=== PATIENT | female | born 1995 | race Caucasian/White ===

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

== ENCOUNTER 2017-04-04 21:02 | Emergency (ER) | payer OTHER ==
[~2017-04-04] VITALS: Ht 154.9 cm; Wt 53.5 kg
[~2017-04-04 21:02] MED LIST: CLOB1SUS PO; [UNRECOGNIZED DRUG - CODE] PO
[2017-04-04 21:08] VITALS: Ht 154.9 cm; Wt 53.5 kg
[2017-04-04] MEDS ORDERED: OXYCODONE HCL IR 5 MG TAB (IMMEDIATE RELEASE) PO STA (21:51)
[2017-04-04] MEDS ORDERED: IBUPROFEN 600 MG TAB PO STA (21:51)
--- NOTE | 2017-04-04 21:54 | DIAGNOSTIC IMAGING REPORT ---
RIGHT FOREARM 2 VIEWS ROUTINE CLINICAL HISTORY: Right forearm pain status post trauma COMPARISON: None. DISCUSSION: No fractures or dislocations are visualized. IMPRESSION: No fractures identified. Electronically signed by: Edwar Jones M.D. 04/04/2017 9:53 PM Dictated Date/Time: 04/04/2017 9:53 PM
[2017-04-04] MEDS ORDERED: OXYCODONE IR HOME PACK PO ONE (22:00)
[2017-04-04] MEDS ORDERED: OXYC1TAB3 PO (22:14)
[2017-04-04 22:24] VITALS: BP 132/81; PULSE 90; TEMP 36.7; O2SAT 100
--- NOTE | 2017-04-05 00:20 | EMERGENCY ROOM VISIT NOTE ---
History First contact with patient: 21:14 Chief Complaint: ARM PAIN Stated Complaint: R ARM INJRY History of Present Illness The patient is a 21 year old female who presents to the Emergency Room with complaints of pain, numbness and tingling of her right forearm into the right fourth and fifth fingers. The patient reports that she slipped and fell one steps, landing on her elbow. She denies head injury, neck pain, back pain or other injuries from her fall. She rates her discomfort an 8 out of 10. The patient is [id number]. Review of Systems 10 system review was performed and was negative except for pertinent positives and negatives as indicated in history of present illness Past Medical/Surgical History Medical Problems: (1) Epilepsy (2) Brant-Gastaut syndrome Surgical Problems: (1) No history of previous surgery Family History Unremarkable Social History Smoking Status: Never Smoker Alcohol Use: occasionally Drug Use: none Marital Status: single Housing Status: lives with roommate Occupation Status: [employer] student Current/Historical Medications Scheduled Clobazam (Onfi), 10 MG PO DAILY Felbamate (Felbatol), 2,800 MG PO QAM Felbamate (Felbatol), 1,600 MG PO QPM Scheduled PRN Oxycodone Ir (Roxicodone Ir), 1 TAB PO Q4H PRN for Pain Physical Exam Vital Signs Date Time Temp Pulse Resp B/P (MAP) Pulse Ox O2 Delivery O2 Flow Rate FiO2 04/04/17 22:24 36.7 90 18 132/81 100 04/04/17 22:19 90 18 132/81 100 Room Air 04/04/17 21:08 36.7 118 16 126/85 95 Room Air Physical Exam CONSTITUTIONAL: Healthy and well nourished. Alert and oriented X 3 with positive affect. HEENT: Normocephalic, atraumatic. Pupils equal, round and reactive. NECK: Full active range of motion without discomfort. MUSCULOSKELETAL: Examination of the right upper sternum he does not show any significant soft tissue edema, ecchymosis, abrasions or lacerations. She is tender to palpation through the medial aspect of the elbow with a positive compression test and positive Tinel test at the cubital tunnel. She has equal collector of internal revenue strength bilaterally. No focal tenderness to palpation through the shoulder or wrist region. Distal pulses are intact. INTEGUMENTARY: No rash or other significant dermatologic conditions noted. NEUROLOGIC: Right hand median, radial and ulnar motor and sensory are intact. Medical Decision & Procedures ER Provider Diagnostic Interpretation: My interpretation of right forearm x-rays does not show any obvious fractures or dislocations. Radiologist report is as follows: RIGHT FOREARM 2 VIEWS ROUTINE CLINICAL HISTORY: Right forearm pain status post trauma COMPARISON: None. DISCUSSION: No fractures or dislocations are visualized. IMPRESSION: No fractures identified. Medications Administered Medications (Trade) Dose Ordered Sig/Freedom Route Start Time Stop Time Status Last Admin Dose Admin Ibuprofen (Motrin Tab) 600 mg NOW STAT PO 04/04/17 21:51 04/04/17 21:57 DC 04/04/17 22:05 600 MG Oxycodone HCl (Roxicodone Immediate Rel Tab) 5 mg NOW STAT PO 04/04/17 21:51 04/04/17 21:57 DC 04/04/17 22:05 5 MG Oxycodone HCl (Roxicodone Immediate Rel 5MG Home Pack) 1 homepack UD ONCE PO 04/04/17 22:00 04/04/17 22:01 DC 04/04/17 22:20 1 HOMEPACK ED Course Patient history and physical exam were performed. Nurse's notes were reviewed. Vital signs were reviewed and were normal. The patient was administered ibuprofen for pain. X-rays of the right forearm were normal. Clinical exam is consistent with atraumatic ulnar neuritis. The patient was encouraged to intermittently apply ice to the elbow. I offered to get some Heelbo pads from the medical floor, however the patient requested an Ronn wrap instead. She was encouraged to intermittently apply ice to the elbow. I also encouraged the patient to avoid any further continuous pressure or trauma to the elbow. She was encouraged to try to sleep with her arm extended. She was provided contact information for orthopedics should her symptoms not significantly improve within the next 3-5 days. She was encouraged to alternate ibuprofen and Tylenol as needed for pain. Did request something stronger for pain, and was administered OxyIR 5 mg. She was also dispensed a home pack and prescription for OxyIR 5 mg as needed for worse pain. The patient was happy with plan of care, voiced understanding of all discharge instructions, and rated her discomfort a 5 out of 10 at the conclusion of my exam. Medical Decision [place] Drug Monitoring Program Search Results: patient reviewed within database, no issues identified Medication Reconcilliation Current Medication List: was personally reviewed by me Blood Pressure Screening Patient's blood pressure: Normal blood pressure Impression Primary Impression: Traumatic right ulnar neuritis Departure Information Prescriptions Oxycodone Ir (Roxicodone Ir) 5 Mg Tab 1 TAB PO Q4H Y for Pain, #15 TAB For Initial Treatment Prov: Myke Pérez PA 04/04/17 Referrals [facility] (PCP) Patient Instructions My [facility]
== END 2017-04-04 22:25 | disposition home or self-care (01) ==
LOC: C.EDB 21:03 → C.EDD 22:25
DX: G56.21 Lesion of ulnar nerve, right upper limb (principal); W10.9XXA Fall (on) (from) unspecified stairs and steps, initial encounter; Y92.9 Unspecified place or not applicable; G40.909 Epilepsy, unspecified, not intractable, without status epilepticus; G40.812 Lennox-Gastaut syndrome, not intractable, without status epilepticus; Z79.899 Other long term (current) drug therapy

== ENCOUNTER 2017-04-19 09:25 | Emergency (ER) | payer OTHER ==
[~2017-04-19 09:25] MED LIST changes: +OXYC1TAB3 PO
[2017-04-19 09:30] VITALS: TEMP 37
[2017-04-19] MEDS ORDERED: ACETAMINOPHEN 325 MG TAB PO STA (10:36)
[2017-04-19] MEDS ORDERED: HYDROCODONE/ACETAMOPHEN 5/325MG TAB PO STA (10:36)
[2017-04-19] MEDS ORDERED: SODIUM CHLORIDE 0.9% 1000ML 1,000 ML IV STA ×2 (10:39→11:43)
[2017-04-19 10:51] LABS: BASO % 0.1 %; BASO ABS # 0.01 K/uL (0-0.2); COMPLETE YES; EOS % 1.1 %; HEMATOCRIT 39.6 % (37-47); IG% 0.3 %; LYMPH % 13.4 %; LYMPH ABS # 1.17 K/uL (1.2-3.4); MEAN CELL VOLUME 92.3 fL (80-100); MEAN CORPUSCULAR HEMOGLOBIN 31.2 pg (25-34); MEAN CORPUSCULAR HGB CONC 33.8 g/dl (32-36); MEAN PLATELET VOLUME 9.9 fL (7.4-10.4); MONO % 7.5 %; NEUT % 77.6 %; PLATELET COUNT 280 K/uL (130-400); RED BLOOD COUNT 4.29 M/uL (4.2-5.4); WHITE BLOOD COUNT 8.71 K/uL (4.8-10.8)
[2017-04-19 10:57] LABS: BLOOD UREA NITROGEN 17 mg/dl (7-18); BUN/CREATININE RATIO 27.7 (10-20); CARBON DIOXIDE 27 mmol/L (21-32); CHLORIDE 106 mmol/L (98-107); CREATININE 0.62 mg/dl (0.60-1.20); GLUCOSE 83 mg/dl (70-99); MAGNESIUM 1.9 mg/dl (1.8-2.4); PHOSPHORUS 2.7 mg/dl (2.5-4.9); POTASSIUM 4.2 mmol/L (3.5-5.1); SODIUM 138 mmol/L (136-145)
[2017-04-19 11:00] LABS: PREG INTERNAL NEGATIVE QC NEG CLEAR BACKGROUND; PREG INTERNAL POSITIVE QC POS CONTROL LINE
--- NOTE | 2017-04-19 11:21 | DIAGNOSTIC IMAGING REPORT ---
HEAD CT NONCONTRAST CT DOSE: HISTORY: s/p fall, unknown how many stairs, facial trauma noted TECHNIQUE: Multiaxial CT images of the head were performed without the use of intravenous contrast. Automated exposure control was utilized for this study. A dose lowering technique was utilized adhering to the principles of ALARA. Comparison: None. Findings: Partial opacification of the visualized frontal sinuses, ethmoid air cells, and maxillary sinuses. This is better appreciated on the same day facial CT. The mastoid air cells are clear. Slightly depressed fracture involving the lateral wall the left orbit. Left frontal scalp swelling. The calvarium is intact. There is no mass, hematoma, midline shift, acute infarct. The ventricles and sulci are within normal limits. Impression: No acute intracranial abnormality. Left facial fractures and opacified sinuses are better appreciated on the same day facial CT. Electronically signed by: Trevor Atkinson M.D. 04/19/2017 11:20 AM Dictated Date/Time: 04/19/2017 11:14 AM
--- NOTE | 2017-04-19 11:24 | EMERGENCY ROOM VISIT NOTE ---
History Report prepared by Brisa: Octavia Ferreira Under the Supervision of: Dr. Cody Simms M.D. First contact with patient: 10:15 Chief Complaint: FALL Stated Complaint: FALL History of Present Illness The patient is a 21 year old female with a past medical history of epilepsy who presents to the ED with a cc of fall beginning [employer]. Patient was found at the bottom of the stairs. The fall was not witnessed. She does not remember falling. Positive facial pain, left shoulder pain, right elbow pain, right knee pain. Negative chest pain. She is not on blood thinners. She denies any alcohol , tobacco, or drug use. She does drink coffee, but no other stimulant use. She is under some increased stress from school. Her last seizure was 2 weeks ago. Source of History: patient Onset: [employer]IST Position: other Quality: other (fall) Timing: other (episodic) Associated Symptoms: No chest pain Note: Pt reports facial pain, left shoulder pain, right elbow pain, right knee pain. Review of Systems See HPI for pertinent positives and negatives. A total of ten systems were reviewed and were otherwise negative. Past Medical & Surgical Medical Problems: (1) Epilepsy (2) Quemado-Gastaut syndrome Surgical Problems: (1) No history of previous surgery Family History No pertinent family history stated. Social History Smoking Status: Never Smoker Alcohol Use: occasionally Drug Use: none Marital Status: single Housing Status: lives with roommate Occupation Status: [employer] student Current/Historical Medications Scheduled Amoxicillin & Pot Clavulanate (Augmentin 875-125 mg), 875 MG PO BID Clobazam (Onfi), 10 MG PO DAILY Felbamate (Felbatol), 2,800 MG PO QAM Felbamate (Felbatol), 1,600 MG PO QPM Ondasetron Odt (Zofran Odt), 4 MG SL Q6H Scheduled PRN Oxycodone Ir (Roxicodone Ir), 1-2 TAB PO Q4H PRN for Pain Allergies Coded Allergies: No Known Allergies (Unverified , 04/04/17) Physical Exam Vital Signs Date Time Temp Pulse Resp B/P (MAP) Pulse Ox O2 Delivery O2 Flow Rate FiO2 04/19/17 11:45 97 18 140/76 100 Room Air 04/19/17 09:30 37.0 112 18 129/88 99 Room Air Physical Exam GENERAL: Awake, alert, well-appearing, NAD HENT: Ecchymosis and swelling to the left cheek with mild tenderness, small abrasion which is hemostatic to the left cheek. No proptosis, no hyphema, PERRL , EOMI intact, visual acuity grossly intact. EYES: Normal conjunctiva. Sclera non-icteric. NECK: Supple. No nuchal rigidity. FROM. No midline C spine TTP. Paraspinal TTP. RESPIRATORY: CTAB, no rhonchi, wheezing, crackles CARDIAC: RRR, no MRG ABDOMEN: Soft, NTND, BS+ MSK: No chest wall TTP, no LE edema. Mild left shoulder pain, mild right elbow pain, mild right knee pain. NEURO: GCS 15, CN 2-12 intact, good UE and LE strength, no sensory deficit. SKIN: No rash or jaundice noted. Medical Decision & Procedures ER Provider Diagnostic Interpretation: Radiology results as stated below per my review and radiologist interpretation: CHEST ONE VIEW PORTABLE HISTORY: s/p fall COMPARISON: None. FINDINGS: The lungs are clear. Cardiac silhouette is normal in size. No pleural effusions. No pneumothorax. Poststernotomy changes. IMPRESSION: No acute process. Electronically signed by: Trevor Atkinson M.D. 04/19/2017 12:09 PM Dictated Date/Time: 04/19/2017 12:[address]AST CT DOSE: HISTORY: s/p fall, unknown how many stairs, facial trauma noted TECHNIQUE: Multiaxial CT images of the head were performed without the use of intravenous contrast. Automated exposure control was utilized for this study. A dose lowering technique was utilized adhering to the principles of ALARA. Comparison: None. Findings: Partial opacification of the visualized frontal sinuses, ethmoid air cells, and maxillary sinuses. This is better appreciated on the same day facial CT. The mastoid air cells are clear. Slightly depressed fracture involving the lateral wall the left orbit. Left frontal scalp swelling. The calvarium is intact. There is no mass, hematoma, midline shift, acute infarct. The ventricles and sulci are within normal limits. Impression: No acute intracranial abnormality. Left facial fractures and opacified sinuses are better appreciated on the same day facial CT. Electronically signed by: Trevor Atkinson M.D. 04/19/2017 11:20 AM Dictated Date/Time: 04/19/2017 11:14 AM RIGHT KNEE 3 VIEWS CLINICAL HISTORY: Right knee pain and swelling. Trauma. COMPARISON: None. DISCUSSION: No fractures or dislocations are visualized. There is no radiographic evidence of a significant joint effusion. IMPRESSION: No fractures or dislocations identified. Electronically signed by: Edwar Jones M.D. 04/19/2017 11:33 AM Dictated Date/Time: 04/19/2017 11:[address] FACIAL BONES-MXILLOFAC WITHOUT CT DOSE: 960.37 mGy.cm CLINICAL HISTORY: Facial pain status post trauma. Fall down stairs. COMPARISON STUDY: No previous studies for comparison. TECHNIQUE: Helical images were acquired in the transverse plane. The study was reviewed and analyzed on the independent 3-D workstation. A dose lowering technique was utilized adhering to the principles of ALARA. The pterygoid plates appear intact. There are acute fractures involving the anterior and lateral madrigal of the left maxillary sinus. The globes appear intact. There is no evidence of orbital emphysema. There are acute fractures involving the lateral wall of the left orbit. There is an equivocal nondisplaced left zygomatic arch fracture. The mandibular condyles appear intact. Both maxillary sinuses are nearly completely opacified. There is opacification of multiple ethmoid air cells. There is partial opacification of frontal sinuses. There is minimal sphenoid sinus mucosal thickening. IMPRESSION: 1. Acute fractures involving the lateral wall of the left orbit, demonstrating 2 mm of maximal depression. 2. Acute fractures involving the anterior and lateral madrigal of the left maxillary sinus 3. Equivocal nondisplaced left zygomatic arch fracture Electronically signed by: Edwar Jones M.D. 04/19/2017 11:31 AM Dictated Date/Time: 04/19/2017 11:26 AM LEFT SHOULDER MIN 2 VIEWS ROUTINE CLINICAL HISTORY: 21 years-old Female presenting with pain post ?seizure. TECHNIQUE: Internal rotation, external rotation, and Grashey views of the left shoulder were obtained. COMPARISON: None. FINDINGS: Glenohumeral and acromioclavicular joints congruent. No subluxation of the humeral head. No degenerative change. No acute fracture or malalignment. Visualized portion of the left hemithorax demonstrates median sternotomy wires. IMPRESSION: No acute osseous injury of the left shoulder. No dislocation. Electronically signed by: Ki Singletary M.D. 04/19/2017 11:49 AM Dictated Date/Time: 04/19/2017 11:48 AM Laboratory Results 04/19/17 10:05 Red Blood Count 4.29, Mean Corpuscular Volume 92.3, Mean Corpuscular Hemoglobin 31.2, Mean Corpuscular Hemoglobin Concent 33.8, Mean Platelet Volume 9.9, Neutrophils (%) (Auto) 77.6, Lymphocytes (%) (Auto) 13.4, Monocytes (%) (Auto) 7.5, Eosinophils (%) (Auto) 1.1, Basophils (%) (Auto) 0.1, Neutrophils # (Auto) 6.75, Lymphocytes # (Auto) 1.17, Monocytes # (Auto) 0.65, Eosinophils # (Auto) 0.10, Basophils # (Auto) 0.01 04/19/17 10:05 Test 04/19/17 10:05 04/19/17 11:25 04/19/17 11:45 White Blood Count 8.71 K/uL (4.8-10.8) Red Blood Count 4.29 M/uL (4.2-5.4) Hemoglobin 13.4 g/dL (12.0-16.0) Hematocrit 39.6 % (37-47) Mean Corpuscular Volume 92.3 fL (80-100) Mean Corpuscular Hemoglobin 31.2 pg (25-34) Mean Corpuscular Hemoglobin Concent 33.8 g/dl (32-36) Platelet Count 280 K/uL (130-400) Mean Platelet Volume 9.9 fL (7.4-10.4) Neutrophils (%) (Auto) 77.6 % Lymphocytes (%) (Auto) 13.4 % Monocytes (%) (Auto) 7.5 % Eosinophils (%) (Auto) 1.1 % Basophils (%) (Auto) 0.1 % Neutrophils # (Auto) 6.75 K/uL (1.4-6.5) Lymphocytes # (Auto) 1.17 K/uL (1.2-3.4) Monocytes # (Auto) 0.65 K/uL (0.11-0.59) Eosinophils # (Auto) 0.10 K/uL (0-0.5) Basophils # (Auto) 0.01 K/uL (0-0.2) RDW Standard Deviation 49.4 fL (36.4-46.3) RDW Coefficient of Variation 14.6 % (11.5-14.5) Immature Granulocyte % (Auto) 0.3 % Immature Granulocyte # (Auto) 0.03 K/uL (0.00-0.02) Anion Gap 5.0 mmol/L (3-11) Estimated GFR () > 150.0 Estimated GFR (Non- 130.7 BUN/Creatinine Ratio 27.7 (10-20) Calcium Level 9.0 mg/dl (8.5-10.1) Phosphorus Level 2.7 mg/dl (2.5-4.9) Magnesium Level 1.9 mg/dl (1.8-2.4) Human Chorionic Gonadotropin, Qual NEG (NEG) Prothrombin Time 10.1 SECONDS (9.0-12.0) Prothromb Time International Ratio 0.9 (0.9-1.1) Activated Partial Thromboplast Time 26.9 SECONDS (21.0-31.0) Partial Thromboplastin Ratio 1.0 Urine Color YELLOW Urine Appearance CLEAR (CLEAR) Urine pH 5.5 (4.5-7.5) Urine Specific [place] 1.010 (1.000-1.030) Urine Protein NEG (NEG) Urine Glucose (UA) NEG (NEG) Urine Ketones NEG (NEG) Urine Occult Blood TRACE (NEG) Urine Nitrite NEG (NEG) Urine Bilirubin NEG (NEG) Urine Urobilinogen NEG (NEG) Urine Leukocyte Esterase NEG (NEG) Urine WBC (Auto) 1-5 /hpf (0-5) Urine RBC (Auto) 0-4 /hpf (0-4) Urine Hyaline Casts (Auto) 1-5 /lpf (0-5) Urine Epithelial Cells (Auto) >30 /lpf (0-5) Urine Bacteria (Auto) 1+ (NEG) Laboratory results reviewed by me Medications Administered Medications (Trade) Dose Ordered Sig/Freedom Route Start Time Stop Time Status Last Admin Dose Admin Acetaminophen (Tylenol Tab) 650 mg NOW STAT PO 04/19/17 10:36 04/19/17 10:40 DC 04/19/17 10:53 650 MG Acetaminophen/ Hydrocodone Bitart ([place] 5/325 Tab) 1 tab ONE STAT PO 04/19/17 10:36 9/13/17 10:40 DC 04/19/17 10:53 1 TAB Sodium Chloride 1,000 ml @ 999 mls/hr Q1H1M STAT IV 04/19/17 10:39 04/19/17 11:39 DC 04/19/17 10:49 999 MLS/HR Sodium Chloride 1,000 ml @ 999 mls/hr Q1H1M STAT IV 04/19/17 11:43 04/19/17 12:43 DC 04/19/17 11:46 999 MLS/HR Morphine Sulfate (MoRPHine SULFATE INJ) 4 mg NOW STAT IV 04/19/17 11:43 04/19/17 11:45 DC 04/19/17 11:51 4 MG Amoxicillin/ Clavulanate Potassium (Augmentin Tab) 875 mg NOW ONCE PO 04/19/17 11:45 04/19/17 11:46 DC 04/19/17 11:50 875 MG ED Course 1026: The patient was evaluated in room B12A. A complete history and physical exam was performed. 1208: I discussed the patient's case with Dr. Mitchell, [facility]. He recommends follow up in 1 week. 1226: I discussed the patient's case with Dr. Rodriguez, [facility] neurology. She recommends contacting the patient's primary neurologist. 1320: A reasonable effort was made to contact the primary neurologist. The patient's primary neurologist was paged 2 separate times, but did not respond. 1330: I reevaluated the patient. I discussed results and discharge instructions : she verbalized understanding and agreement. The patient is ready for discharge. 1406: I spoke with the patient's mother. I updated her on the results. 1428: I discussed the patient's case with the patient's primary neurologist. She will reach out to the family. Medical Decision Differential diagnosis: seizure, facial fracture, ICH, fracture, strain, sprain. The patient is a 21 year old female with a past medical history of epilepsy who presents to the ED with a cc of fall beginning [employer]. Patient was seen and evaluated at the bedside. Patient had a GCS of 15 and was following commands. Patient had a normal neurologic exam in addition to normal ophthalmologic exam. Patient gross finger counting normal no hyphema or hypopyon no subconjunctival hemorrhage EOM intact and not restricted. Patient' s C-spine was cleared clinically. Given the potential mechanism as well as the facial swelling patient had CT of the head as well as face completed. Patient was noted to have maxillary, orbital, and zygomatic fractures. Patient did not have any malocclusion. Patient had a recent tetanus. Patient to have small abrasion to the face which only needed a Band-Aid. Patient was given strict nasal precautions and follow-up after speaking with Dr. Mitchell in 1 week. Case management helped arranged f/u. Patient was given Augmentin and pain control. Patient's primary neurologist was paged after speaking with her own neurologist who recommended discussing with the personal neurologist. Patient was advised to keep from stairs arranged to have a friend or somebody accompany her up and down stairs or changes in elevation as she may have recurrent falls given her increase in seizure frequency. Patient was told not to drive. Patient was also told to abstain from things like alcohol drugs tobacco or stimulants. Patient given strict follow-up, discharge, and return precautions. Patient agreed with care patient was safely discharged home. After discharge I did speak w/ patient's primary neurologist. After discussion patient would be contacted via email by neurologist. Head Trauma GCS Score: 15 Medication Reconcilliation Current Medication List: was personally reviewed by me Blood Pressure Screening Patient's blood pressure: Elevated blood pressure Blood pressure disposition: Elevated BP felt to be situational Consults Time Called: 1203 Consulting Physician: Dr. Mitchell, [facility] Returned Call: 1208 I discussed the patient's case with him. He recommends follow up in 1 week. Additional Consults: Time Called: 1211 Consulted Physician: Dr. Rodriguez, [facility] neurology Returned Call: 1222 Additional Comments: I discussed the patient's case with him. She recommends contacting the patient' s primary neurologist. Time Called: 1315 Consulted Physician: the patient's primary neurologist Returned Call: 1321 Additional Comments: I discussed the patient's case with the patient's primary neurologist. She will reach out to the family. Impression Primary Impression: Zygomatic fracture, left side, initial encounter for closed fracture Additional Impressions: Left orbit fracture Fall Seizure Fracture of maxillary sinus Scribe Attestation The scribe's documentation has been prepared under my direction and personally reviewed by me in its entirety. I confirm that the note above accurately reflects all work, treatment, procedures, and medical decision making performed by me. Departure Information Dispostion Home / Self-Care Prescriptions Ondasetron Odt (ZOFRAN ODT) 4 Mg Tab 4 MG SL Q6H for Nausea, #6 TAB Prov: Cody Simms M.D. 04/19/17 Oxycodone Ir (Roxicodone Ir) 5 Mg Tab 1-2 TAB PO Q4H Y for Pain, #15 TAB Prov: Cody Simms M.D. 04/19/17 Amoxicillin & Pot Clavulanate (Augmentin 875-125 mg) 1 Tab Tab 875 MG PO BID for 7 Days, #14 TAB Prov: Cody Simms M.D. 04/19/17 Referrals [facility] (PCP) Patient Instructions ED Mechanical Fall, ED Prevention Fall, ED Seizure Recurrent, Fx Facial, [facility] Additional Instructions Please return to the emergency department if you have worsening or recurrent symptoms not amenable to at-home treatment. Please call for a follow-up appointment with her primary care physician. Please take your medications as prescribed. If you have other concerns and/or complaints please feel free to also call your primary care physician's office or return the ED for further evaluation, management, and treatment. If you have vision changes and/or inability to range your eye or have double vision, please return or call Dr. Mitchell's office for a sooner appointment. Please f/u with your primary neurologist. You received narcotic or benzodiazepene medication while in the emergency room today. This is an addictive medication that may cause drowziness as well as constipation. Do not drive, operate heavy machinery, or drink alcohol under the influence of this medication. Nasal precautions, you may use Afrin as directed into affected nostril if having nosebleeds. If you place anything in your nose, please remove after several hours at the longest as it may cause infection. Please refrain from blowing nose. You may apply ice packs to face to help w/ swelling. If you sneeze , sneeze w/ your mouth open. Take antibiotics as prescribed. You may take 600 mg Ibuprofen every 6 hours as needed for pain with food for no more than 2 consecutive days. You may take tylenol 1000mg every 6 hours as needed for pain. You may take motrin and tylenol separately or at the same time. Take Roxicodone for breakthrough pain. This is an addictive medication that may cause drowziness as well as constipation. Do not drive, operate heavy machinery , or drink alcohol under the influence of this medication. Please avoid stairs/ changes in elevation and driving. You have been examined and treated today on an emergency basis only. This is not a substitute for, or an effort to provide, complete comprehensive medical care. It is impossible to recognize and treat all injuries or illnesses in a single emergency department visit. It is therefore important that you follow up closely with [facility]. Call as soon as possible for an appointment. Thank you for your time and consideration. I look forward to speaking with you again soon. Please don't hesitate to call us if you have any questions. School Instructions Return To School: 2 days Specific Date: 04/21/17 Problem Qualifiers Additional Impressions: Left orbit fracture Encounter type: initial encounter Fracture type: closed Qualified Codes: S02.82XA - Fracture of other specified skull and facial bones, left side, initial encounter for closed fracture Fall Encounter type: initial encounter Qualified Codes: W19.XXXA - Unspecified fall, initial encounter Fracture of maxillary sinus Encounter type: initial encounter Fracture type: open Qualified Codes: S02.401B - Maxillary fracture, unspecified side, initial encounter for open fracture
--- NOTE | 2017-04-19 11:33 | DIAGNOSTIC IMAGING REPORT ---
CT FACIAL BONES-MXILLOFAC WITHOUT CT DOSE: 960.37 mGy.cm CLINICAL HISTORY: Facial pain status post trauma. Fall down stairs. COMPARISON STUDY: No previous studies for comparison. TECHNIQUE: Helical images were acquired in the transverse plane. The study was reviewed and analyzed on the independent 3-D workstation. A dose lowering technique was utilized adhering to the principles of ALARA. The pterygoid plates appear intact. There are acute fractures involving the anterior and lateral madrigal of the left maxillary sinus. The globes appear intact. There is no evidence of orbital emphysema. There are acute fractures involving the lateral wall of the left orbit. There is an equivocal nondisplaced left zygomatic arch fracture. The mandibular condyles appear intact. Both maxillary sinuses are nearly completely opacified. There is opacification of multiple ethmoid air cells. There is partial opacification of frontal sinuses. There is minimal sphenoid sinus mucosal thickening. IMPRESSION: 1. Acute fractures involving the lateral wall of the left orbit, demonstrating 2 mm of maximal depression. 2. Acute fractures involving the anterior and lateral madrigal of the left maxillary sinus 3. Equivocal nondisplaced left zygomatic arch fracture Electronically signed by: Edwar Jones M.D. 04/19/2017 11:31 AM Dictated Date/Time: 04/19/2017 11:26 AM
--- NOTE | 2017-04-19 11:34 | DIAGNOSTIC IMAGING REPORT ---
RIGHT KNEE 3 VIEWS CLINICAL HISTORY: Right knee pain and swelling. Trauma. COMPARISON: None. DISCUSSION: No fractures or dislocations are visualized. There is no radiographic evidence of a significant joint effusion. IMPRESSION: No fractures or dislocations identified. Electronically signed by: Edwar Jones M.D. 04/19/2017 11:33 AM Dictated Date/Time: 04/19/2017 11:32 AM
[2017-04-19] MEDS ORDERED: MoRPHine SULFATE 4 MG/ML 1 ML CARP\\VIAL IV STA (11:43)
[2017-04-19 11:45] VITALS: BP 140/76; PULSE 97; O2SAT 100
[2017-04-19] MEDS ORDERED: AMOXICILLIN/CLAVULANATE TAB 875 MG TAB PO ONE (11:45)
--- NOTE | 2017-04-19 11:51 | DIAGNOSTIC IMAGING REPORT ---
LEFT SHOULDER MIN 2 VIEWS ROUTINE CLINICAL HISTORY: 21 years-old Female presenting with pain post ?seizure. TECHNIQUE: Internal rotation, external rotation, and Grashey views of the left shoulder were obtained. COMPARISON: None. FINDINGS: Glenohumeral and acromioclavicular joints congruent. No subluxation of the humeral head. No degenerative change. No acute fracture or malalignment. Visualized portion of the left hemithorax demonstrates median sternotomy wires. IMPRESSION: No acute osseous injury of the left shoulder. No dislocation. Electronically signed by: Ki Singletary M.D. 04/19/2017 11:49 AM Dictated Date/Time: 04/19/2017 11:48 AM
[2017-04-19 12:07] LABS: INR 0.9 (0.9-1.1); PROTHROMBIN TIME (PATIENT) 10.1 SECONDS (9.0-12.0)
[2017-04-19 12:09] LABS: URINE APPEARANCE CLEAR (CLEAR); URINE BILIRUBIN NEG (NEG); URINE COLOR YELLOW; URINE EPITHELIAL CELL AUTO >30 /lpf (0-5); URINE NITRITE NEG (NEG); URINE PH 5.5 (4.5-7.5); UROBILINOGEN NEG (NEG); ZZUR CULT IF INDIC CLEAN CATCH YES
--- NOTE | 2017-04-19 12:11 | DIAGNOSTIC IMAGING REPORT ---
CHEST ONE VIEW PORTABLE HISTORY: s/p fall COMPARISON: None. FINDINGS: The lungs are clear. Cardiac silhouette is normal in size. No pleural effusions. No pneumothorax. Poststernotomy changes. IMPRESSION: No acute process. Electronically signed by: Trevor Atkinson M.D. 04/19/2017 12:09 PM Dictated Date/Time: 04/19/2017 12:08 PM
[2017-04-19 12:13] LABS: MANUAL MICROSCOPIC REQUIRED? NO; REVIEW REQ? NO
[2017-04-19] MEDS ORDERED: AMOX875T PO (13:19)
[2017-04-19] MEDS ORDERED: ONDA4TAB10 SL (13:19)
[2017-04-19] MEDS ORDERED: OXYC1TAB3 PO (13:19)
== END 2017-04-19 13:40 | disposition home or self-care (01) ==
LOC: EDBD 09:25 → C.EDB 09:26
DX: S02.82XA Fracture of other specified skull and facial bones, left side, initial encounter for closed fracture (principal); S02.40DA Maxillary fracture, left side, initial encounter for closed fracture; S00.81XA Abrasion of other part of head, initial encounter; G40.909 Epilepsy, unspecified, not intractable, without status epilepticus; W19.XXXA Unspecified fall, initial encounter; G40.812 Lennox-Gastaut syndrome, not intractable, without status epilepticus; Z79.899 Other long term (current) drug therapy

== ENCOUNTER 2017-09-01 23:35 | Emergency (ER) | payer OTHER ==
[~2017-09-01] VITALS: Ht 152.4 cm; Wt 55.8 kg
[~2017-09-01 23:35] MED LIST changes: +ONDA4TAB10 SL
[2017-09-01 23:37] VITALS: TEMP 36.6; Ht 152.4 cm; Wt 55.8 kg
[2017-09-01] MEDS ORDERED: PROPARACAINE HCL 0.5% OP SOLN 15 ML BTL ONE (23:50)
[2017-09-02] MEDS ORDERED: OXYCODONE IR HOME PACK PO ONE (00:30)
[2017-09-02] MEDS ORDERED: CIPROFLOXACIN HCL 0.3% OP SOLN 2.5 ML BTL OP ONE (00:30)
[2017-09-02 00:40] VITALS: BP 141/82; PULSE 91; O2SAT 99
--- NOTE | 2017-09-02 16:00 | EMERGENCY ROOM VISIT NOTE ---
ED Visit Note First contact with patient: 23:55 CHIEF COMPLAINT: Eye pain HISTORY OF PRESENT ILLNESS: This 21 year old female patient presents to the emergency department complaining of pain in the left eye for the past 1 hour. There has been a constant moderate pain and irritation, redness and tearing in the eye. There is a mild blurring of vision at times and light bothers the eye. The vision has not been decreased over all. The patient does not wear contacts. The patient rates the pain as sharp and 5/10. The patient has not had previous injuries to this eye. Tetanus shot is reportedly up to date. REVIEW OF SYSTEMS: A 6 system review of systems was completed with positives and pertinent negatives listed in the HPI. ALLERGIES: No known allergies MEDICATIONS: No chronic medications PMH: Otherwise healthy SOCIAL HISTORY: Student and lives locally PHYSICAL EXAM: Vital Signs: Reviewed Nurse's notes, vital signs stable. Visual acuity 20/20 in the right and 20/70 in the left. GENERAL: This is a female, in no acute distress, but who is uncomfortable from the eye problem. Well- developed well-nourished. EYES: The pupils are equal round and reactive to light and accommodation. EOMs are full and without tenderness. There is discharge of clear tears from the left eye which is injected. There is no foreign body visible under the eyelid even after lid eversion. Funduscopic exam reveals no hemorrhages, papilledema, or other abnormalities. No foreign body was seen embedded in the cornea under slit lamp exam. The cornea was clear and no hyphema was seen. Fluorescein uptake was observed with ultraviolet light significant for a corneal abrasion medially roughly from 7:00 to 11:00. EMERGENCY DEPARTMENT COURSE: I examined the patient. Alcaine 2 drops were placed in the patient's left eye. A slit lamp exam was performed as above, and does reveal a corneal abrasion. Ciloxan two drops was placed in the patient's left eye. She was given a home pack of OxyIR The patient was discharged home in good condition with instructions as below. Current/Historical Medications Scheduled Clobazam (Onfi), 10 MG PO DAILY Felbamate (Felbatol), 2,800 MG PO QAM Felbamate (Felbatol), 2,400 MG PO QPM Allergies Coded Allergies: No Known Allergies (Unverified , 09/02/17) Vital Signs Date Time Temp Pulse Resp B/P (MAP) Pulse Ox O2 Delivery O2 Flow Rate FiO2 09/02/17 00:40 91 18 141/82 99 09/01/17 23:37 36.6 101 18 141/82 99 Room Air Medications Administered Medications (Trade) Dose Ordered Sig/Freedom Route Start Time Stop Time Status Last Admin Dose Admin Oxycodone HCl (Roxicodone Immediate Rel 5MG Home Pack) 1 homepack UD ONCE PO 09/02/17 00:30 09/02/17 00:31 DC 09/02/17 00:31 1 HOMEPACK Ciprofloxacin HCl (Ciprofloxacin 0.3% Op Soln) 2 drops NOW ONCE OP 09/02/17 00:30 09/02/17 00:31 DC 09/02/17 00:31 2 DROPS Departure Information Impression Primary Impression: Corneal abrasion, left Dispostion Home / Self-Care Condition GOOD Forms HOME CARE DOCUMENTATION FORM, IMPORTANT VISIT INFORMATION Patient Instructions My [facility] Additional Instructions You were seen and evaluated today on an emergency basis only. This is not a substitute for, or an effort to provide, complete comprehensive medical care. It is not possible to recognize and treat all injuries or illnesses in a single emergency department visit. For this reason it is recommended that you followup with your primary care physician or [facility] if symptoms persist over the next 2-3 days. Use Ciloxan Eye Drops: Instill 1-2 drops into the conjunctival sac every 2 hours while awake for 2 days and 1-2 drops every 4 hours while awake for the next 5 days For baseline pain relief you may alternate ibuprofen and acetaminophen every 4 hours for pain control. Take 600 mg ibuprofen (Advil) and then 4 hours later take 1000 mg acetaminophen (Tylenol). Do not take more than 3000 mg acetaminophen in a single day. Oxycodone (OxyIR) 5mg: Take ONE pill every SIX hours for breakthrough pain. Avoid alcohol, operating machinery or dangerous equipment, working on ladders or roofs, DRIVING, or situations where being under the influence may be dangerous. It is recommended to use an akut-ipo-ungffmu stool softener such as Colace, 100mg twice daily while taking this medication to avoid constipation. You are welcome to return to the emergency department anytime with new, worsening, or concerning symptoms.
== END 2017-09-02 00:42 | disposition home or self-care (01) ==
LOC: C.EDB 23:37 → C.EDD 09-02 00:42
DX: S05.02XA Injury of conjunctiva and corneal abrasion without foreign body, left eye, initial encounter (principal); X58.XXXA Exposure to other specified factors, initial encounter; Y92.9 Unspecified place or not applicable

== ENCOUNTER 2017-10-29 15:13 | Emergency (ER) | payer OTHER ==
[~2017-10-29] VITALS: Ht 157.5 cm; Wt 52.0 kg
[~2017-10-29 15:13] MED LIST changes: -ONDA4TAB10 SL; -OXYC1TAB3 PO
[2017-10-29 15:15] VITALS: Ht 157.5 cm; Wt 52.0 kg
--- NOTE | 2017-10-29 16:09 | DIAGNOSTIC IMAGING REPORT ---
HEAD WITHOUT CONTRAST (CT) CLINICAL HISTORY: 22 years-old Female presenting with CHI 3d ago with worsening ROJO. TECHNIQUE: Multidetector CT imaging of the head was performed without the use of intravenous contrast. IV contrast: None. A dose lowering technique was used consistent with the principles of ALARA (as low as reasonably achievable). COMPARISON: 04/19/2017. CT DOSE (mGy.cm): The estimated cumulative dose is 537.48 mGy.cm. FINDINGS: Supervisor Assembly Stock topogram: Unremarkable. Ventricles and sulci normal in size. Brain parenchyma normal in appearance with preserved carter-white differentiation. No mass effect or midline shift. No hemorrhage or acute territorial infarct. No extra-axial fluid collection. Paranasal sinuses and mastoid air cells clear. Calvarium intact. IMPRESSION: 1. No acute intracranial abnormality. Electronically signed by: Ki Singletary M.D. 10/29/2017 4:07 PM Dictated Date/Time: 10/29/2017 4:05 PM
[2017-10-29 16:44] VITALS: BP 126/85; PULSE 102; TEMP 36.7; O2SAT 98
--- NOTE | 2017-10-29 21:25 | EMERGENCY ROOM VISIT NOTE ---
History First contact with patient: 15:24 Chief Complaint: HEAD INJURY (MINOR) Stated Complaint: HEADACHE/ HIT HEAD HARD History of Present Illness The patient is a 22 year old female who presents to the Emergency Room with complaints of persistent headache, photophobia, tinnitus and occasional nausea. The patient reports that she hit her head on a wall outlet last evening. She denies any loss of consciousness. The patient denies any significant strenuous activities over the weekend. She denies any other injuries, including neck pain. Her mother suggested that she come to the emergency department for a CT or MRI of the head. The patient denies any prior history of concussions. Patient does have a history of seizures. She has taken Advil without any significant relief of her pain, and rates her discomfort a 5 out of 10. Review of Systems 10 system review was performed and was negative except for pertinent positives and negatives as indicated in history of present illness Past Medical/Surgical History Medical Problems: (1) ASD (atrial septal defect) (2) Asthma (3) Epilepsy (4) Brant-Gastaut syndrome (5) Pneumonia Surgical Problems: (1) History of heart surgery (2) No history of previous surgery Family History FH: seizures Social History Smoking Status: Never Smoker Alcohol Use: occasionally Drug Use: none Marital Status: single Housing Status: lives with roommate Occupation Status: [employer] student Current/Historical Medications Scheduled Clobazam (Onfi), 10 MG PO DAILY Felbamate (Felbatol), 2,800 MG PO QAM Felbamate (Felbatol), 2,400 MG PO QPM Physical Exam Vital Signs Date Time Temp Pulse Resp B/P (MAP) Pulse Ox O2 Delivery O2 Flow Rate FiO2 10/29/17 16:44 36.7 102 16 126/85 98 10/29/17 15:15 36.7 102 16 126/85 98 Physical Exam CONSTITUTIONAL: Healthy and well nourished. Alert and oriented X 3 with positive affect. Patient does not appear in any acute distress. GCS 15. HEENT: Normocephalic, atraumatic. No scalp hematomas, abrasions or lacerations. Pupils equal, round and reactive. No hemotympanum, subconjunctival hemorrhage, evidence for prior epistaxis, raccoon's eyes or amor sign. NECK: Full active range of motion without discomfort. RESPIRATORY: Clear to auscultation bilaterally with no wheezing, crackles, rhonchi or stridor. CARDIOVASCULAR: Regular rate and rhythm with no murmurs, rubs or gallops. GASTROINTESTINAL: Bowel sounds present in all quadrants. MUSCULOSKELETAL: Full range of motion of all joints without discomfort. INTEGUMENTARY: No rash or other significant dermatologic conditions noted. NEUROLOGIC: Cranial nerves II-XII grossly intact. No focal neurologic deficits noted. Negative pronator drift. Normal fast alternating hand movements. No ataxia with ambulation. Negative Romberg sign. Medical Decision & Procedures ER Provider Diagnostic Interpretation: Noncontrast CT of the head does not show any skull fractures or intracranial bleed. Radiologist report is as follows: HEAD WITHOUT CONTRAST (CT) CLINICAL HISTORY: 22 years-old Female presenting with CHI 3d ago with worsening ROJO. TECHNIQUE: Multidetector CT imaging of the head was performed without the use of intravenous contrast. IV contrast: None. A dose lowering technique was used consistent with the principles of ALARA (as low as reasonably achievable). COMPARISON: 04/19/2017. CT DOSE (mGy.cm): The estimated cumulative dose is 537.48 mGy.cm. FINDINGS: Product Examiner topogram: Unremarkable. Ventricles and sulci normal in size. Brain parenchyma normal in appearance with preserved carter-white differentiation. No mass effect or midline shift. No hemorrhage or acute territorial infarct. No extra-axial fluid collection. Paranasal sinuses and mastoid air cells clear. Calvarium intact. IMPRESSION: 1. No acute intracranial abnormality. ED Course Patient history and physical exam were performed. Nurse's notes were reviewed. Vital signs were reviewed and were normal. The patient does not appear in any acute distress. The patient refused any further analgesics. Clinical symptoms are consistent with a concussion. The patient reports that her mother is requesting that she undergo further imaging studies. I did suggest a CT scan. I did discuss the risks of radiation with the patient, and the patient agreed to proceed. She denies any possibility of at this time. Noncontrast CT of the head was normal. The patient was advised of her normal CT findings. The patient was advised that she does have a concussion. An educational handout was provided. The patient was encouraged to limit her activities until symptoms improve. Ibuprofen and Tylenol as needed for pain relief. She was encouraged to follow-up with [facility] as needed for further concussion management. Return to the emergency department as needed for any progressively worsening symptoms. The patient was happy with plan of care, voiced understanding of all discharge instructions, and denied any significant discomfort at the time of discharge. Medical Decision Medication Reconcilliation Current Medication List: was personally reviewed by me Blood Pressure Screening Patient's blood pressure: Normal blood pressure Impression Primary Impression: Concussion Departure Information Referrals [facility] (PCP) Patient Instructions My [facility] Problem Qualifiers Primary Impression: Concussion Encounter type: initial encounter Loss of consciousness presence/duration: without LOC Qualified Codes: S06.0X0A - Concussion without loss of consciousness, initial encounter
== END 2017-10-29 16:44 | disposition home or self-care (01) ==
LOC: C.EDB 15:15 → C.EDD 16:44
DX: S06.0X0A Concussion without loss of consciousness, initial encounter (principal); W22.09XA Striking against other stationary object, initial encounter; G40.812 Lennox-Gastaut syndrome, not intractable, without status epilepticus; J45.909 Unspecified asthma, uncomplicated; Q21.1 Atrial septal defect; Z87.01 Personal history of pneumonia (recurrent); Z98.890 Other specified postprocedural states; Z82.0 Family history of epilepsy and other diseases of the nervous system

== ENCOUNTER 2017-11-07 12:44 | Emergency (ER) | payer OTHER ==
[~2017-11-07] VITALS: Ht 154.9 cm; Wt 53.0 kg
[2017-11-07 12:50] VITALS: TEMP 37.8
[2017-11-07] MEDS ORDERED: SODIUM CHLORIDE 0.9% 1000ML 1,000 ML IV STA (13:06)
[2017-11-07 13:10] VITALS: O2SAT 96
[2017-11-07] MEDS ORDERED: CLOBAZAM PO (13:10)
[2017-11-07 13:11] VITALS: Ht 154.9 cm; Wt 53.0 kg
[2017-11-07 13:26] LABS: BASO % 0.1 %; BASO ABS # 0.01 K/uL (0-0.2); EOS % 0.1 %; EOS ABS # 0.01 K/uL (0-0.5); HEMATOCRIT 35.8 % (37-47); HEMOGLOBIN 12.4 g/dL (12.0-16.0); IG# 0.01 K/uL (0.00-0.02); LYMPH ABS # 0.95 K/uL (1.2-3.4); MEAN CELL VOLUME 95.5 fL (80-100); MEAN CORPUSCULAR HEMOGLOBIN 33.1 pg (25-34); MEAN CORPUSCULAR HGB CONC 34.6 g/dl (32-36); MEAN PLATELET VOLUME 9.5 fL (7.4-10.4); MONO % 11.2 %; MONO ABS # 0.82 K/uL (0.11-0.59); NEUT % 75.5 %; PLATELET COUNT 190 K/uL (130-400); RED CELL DISTRIBUTION WIDTH CV 13.6 % (11.5-14.5); RED CELL DISTRIBUTION WIDTH SD 47.8 fL (36.4-46.3)
--- NOTE | 2017-11-07 13:26 | EMERGENCY ROOM VISIT NOTE ---
History Report prepared by Brisa: Kandi Sands Under the Supervision of: Dr. Yung Carter M.D. First contact with patient: 12:59 Chief Complaint: HEADACHE Stated Complaint: HEADACHE History of Present Illness The patient is a 22 year old female who presents to the Emergency Room with complaints of a concussion occurring [employer] WORK[employer]. The patient hit her head on a wall outlet about 2 weeks ago. She was evaluated in the ED on 10/29/17. She had a negative CT of the head and was diagnosed with a concussion. She was discharged home. The patient reports that she has continued to have symptoms. She states that she has been very forgetful. She has not been eating or sleeping much. She denies any current headache. She states, "I just feel down in the dumps." She did not follow up with the concussion clinic. The patient has a history of epilepsy and takes medications. She has not missed any doses. She has not scheduled a follow-up appointment with her neurologist. The patient's mother advised her to come to the ED again for an MRI of the brain with contrast. The patient denies any chance of . Her LNMP was 3 weeks ago. 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 Not eating or drinking much. Review of Systems See HPI for pertinent positives & negatives. A total of 10 systems reviewed and were otherwise negative. Past Medical & Surgical Medical Problems: (1) ASD (atrial septal defect) (2) Asthma (3) Epilepsy (4) Brant-Gastaut syndrome (5) Pneumonia Surgical Problems: (1) History of heart surgery (2) No history of previous surgery Family History FH: seizures Social History Smoking Status: Never Smoker Alcohol Use: occasionally Drug Use: none Marital Status: single Housing Status: lives with roommate Occupation Status: [employer] student Current/Historical Medications Scheduled Felbamate (Felbatol), 2,800 MG PO QAM Felbamate (Felbatol), 2,400 MG PO QPM Sulfa/Trimethoprim (Bactrim Ds 800MG/160MG), 1 TAB PO BID [Clobazam], 10 MG PO DAILY Allergies Coded Allergies: No Known Allergies (Unverified , 11/07/17) Physical Exam Vital Signs Date Time Temp Pulse Resp B/P (MAP) Pulse Ox O2 Delivery O2 Flow Rate FiO2 11/07/17 16:17 80 20 120/71 100 11/07/17 15:25 99 20 124/71 98 Room Air 11/07/17 13:26 114 11/07/17 13:10 96 Room Air 11/07/17 13:10 96 Room Air 11/07/17 12:50 37.8 121 20 124/83 96 Room Air Physical Exam GENERAL: Awake, alert, well-appearing, in no acute distress HENT: Normocephalic, atraumatic. Oropharynx unremarkable. EYES: Normal conjunctiva. Sclera non-icteric. NECK: Supple. No nuchal rigidity. FROM. No JVD. No evidence of meningitis or encephalitis on exam. RESPIRATORY: Clear to auscultation. CARDIAC: Regular rate, normal rhythm. Extremities warm and well perfused. Pulses equal. ABDOMEN: Soft, non-distended. No tenderness to palpation. No rebound or guarding. No masses. RECTAL: Deferred. MUSCULOSKELETAL: Chest examination reveals no tenderness. The back is symmetrical on inspection without obvious abnormality. There is no CVA tenderness to palpation. No joint edema. LOWER EXTREMITIES: Calves are equal size bilaterally and non-tender. No edema. No discoloration. NEURO: Normal sensorium. No sensory or motor deficits noted. SKIN: No rash or jaundice noted. Medical Decision & Procedures ER Provider Diagnostic Interpretation: BRAIN COMBO FOR SEIZURE CLINICAL HISTORY: 22 years-old Female presenting with Pt c/o weakness, hx of epilepsy, head injury. TECHNIQUE: Multisequence, multiplanar MR imaging of the brain was performed before and after the administration of intravenous contrast. IV contrast: 5 mL of Gadavist. COMPARISON: Noncontrast CT head from 10/29/2017. FINDINGS: Ventricles and sulci normal in size. Brain parenchyma normal in appearance with preserved carter-white differentiation. No mass effect or midline shift. No restricted diffusion to suggest acute ischemia. No hemorrhage. No extra-axial fluid collection. T2 skull base flow voids preserved. No abnormal parenchymal enhancement. Bone marrow signal intensity within the calvarium within normal limits. IMPRESSION: 1. No acute intracranial pathology. No abnormal enhancement. Electronically signed by: Ki Singletary M.D. 11/07/2017 2:54 PM Dictated Date/Time: 11/07/2017 2:47 PM Laboratory Results 11/07/17 13:10 Red Blood Count 3.75, Mean Corpuscular Volume 95.5, Mean Corpuscular Hemoglobin 33.1, Mean Corpuscular Hemoglobin Concent 34.6, Mean Platelet Volume 9.5, Neutrophils (%) (Auto) 75.5, Lymphocytes (%) (Auto) 13.0, Monocytes (%) (Auto) 11.2, Eosinophils (%) (Auto) 0.1, Basophils (%) (Auto) 0.1, Neutrophils # (Auto ) 5.50, Lymphocytes # (Auto) 0.95, Monocytes # (Auto) 0.82, Eosinophils # (Auto ) 0.01, Basophils # (Auto) 0.01 11/07/17 13:10 Test 11/07/17 13:10 11/07/17 13:20 11/07/17 16:00 White Blood Count 7.30 K/uL (4.8-10.8) Red Blood Count 3.75 M/uL (4.2-5.4) Hemoglobin 12.4 g/dL (12.0-16.0) Hematocrit 35.8 % (37-47) Mean Corpuscular Volume 95.5 fL (80-100) Mean Corpuscular Hemoglobin 33.1 pg (25-34) Mean Corpuscular Hemoglobin Concent 34.6 g/dl (32-36) Platelet Count 190 K/uL (130-400) Mean Platelet Volume 9.5 fL (7.4-10.4) Neutrophils (%) (Auto) 75.5 % Lymphocytes (%) (Auto) 13.0 % Monocytes (%) (Auto) 11.2 % Eosinophils (%) (Auto) 0.1 % Basophils (%) (Auto) 0.1 % Neutrophils # (Auto) 5.50 K/uL (1.4-6.5) Lymphocytes # (Auto) 0.95 K/uL (1.2-3.4) Monocytes # (Auto) 0.82 K/uL (0.11-0.59) Eosinophils # (Auto) 0.01 K/uL (0-0.5) Basophils # (Auto) 0.01 K/uL (0-0.2) RDW Standard Deviation 47.8 fL (36.4-46.3) RDW Coefficient of Variation 13.6 % (11.5-14.5) Immature Granulocyte % (Auto) 0.1 % Immature Granulocyte # (Auto) 0.01 K/uL (0.00-0.02) Anion Gap 8.0 mmol/L (3-11) Est Creatinine Clear Calc Drug Dose 107.4 ml/min Estimated GFR () 149.7 Estimated GFR (Non- 129.1 BUN/Creatinine Ratio 28.5 (10-20) Calcium Level 9.0 mg/dl (8.5-10.1) Total Bilirubin 0.3 mg/dl (0.2-1) Direct Bilirubin 0.1 mg/dl (0-0.2) Aspartate Amino Transf (AST/SGOT) 15 U/L (15-37) Alanine Aminotransferase (ALT/SGPT) 29 U/L (12-78) Alkaline Phosphatase 72 U/L (45-117) Total Protein 7.1 gm/dl (6.4-8.2) Albumin 3.6 gm/dl (3.4-5.0) Thyroid Stimulating Hormone (TSH) 1.170 uIu/ml (0.300-4.500) Human Chorionic Gonadotropin, Qual NEG (NEG) Monoscreen NEG (NEG) Influenza Type A Antigen Neg for Influ A (NEG) Influenza Type B Antigen Neg for Influ B (NEG) Urine Color YELLOW Urine Appearance CLEAR (CLEAR) Urine pH 5.5 (4.5-7.5) Urine Specific [place] 1.028 (1.000-1.030) Urine Protein 1+ (NEG) Urine Glucose (UA) NEG (NEG) Urine Ketones NEG (NEG) Urine Occult Blood NEG (NEG) Urine Nitrite NEG (NEG) Urine Bilirubin NEG (NEG) Urine Urobilinogen NEG (NEG) Urine Leukocyte Esterase MODERATE (NEG) Urine WBC (Auto) 10-30 /hpf (0-5) Urine RBC (Auto) 0-4 /hpf (0-4) Urine Hyaline Casts (Auto) 5-10 /lpf (0-5) Urine Epithelial Cells (Auto) 20-30 /lpf (0-5) Urine Bacteria (Auto) NEG (NEG) Urine Test NEG (NEG) Labs reviewed by ED physician. Medications Administered Medications (Trade) Dose Ordered Sig/Freedom Route Start Time Stop Time Status Last Admin Dose Admin Sodium Chloride 1,000 ml @ 999 mls/hr Q1H1M STAT IV 11/07/17 13:06 11/07/17 14:06 DC 11/07/17 13:24 999 MLS/HR Potassium Chloride (Lady Ciel Elix) 40 meq NOW STAT PO 11/07/17 14:11 11/07/17 14:12 DC 11/07/17 15:27 40 MEQ Sodium Chloride 500 ml @ 999 mls/hr Q31M STAT IV 11/07/17 14:48 11/07/17 15:18 DC 11/07/17 15:26 999 MLS/HR Trimethoprim/ Sulfamethoxazole (Septra Ds 800/ 160MG Tab) 1 tab NOW STAT PO 11/07/17 15:58 11/07/17 15:59 DC 11/07/17 16:17 1 TAB ECG Per My Interpretation Indication: other Rate (beats per minute): 109 Rhythm: sinus tachycardia Findings: RBBB (incomplete), other (no ST elevation or depression) ED Course 1259: Past medical records reviewed. The patient was evaluated in room C8. A complete history and physical examination was performed. 1306: NSS 1000 ml @ 999 mls/hr IV 1407: I spoke with the patient's mother at the patient's request. We spoke via telephone and discussed the patient's treatment plan. 1411: Potassium Chloride 40 meq PO 1415: I updated the patient and she is doing well. 1448: NSS 500 ml @ 999 mls/hr IV Medical Decision Differential diagnosis: Etiologies such as migraine headache, meningitis, sinusitis, CO exposure, ICH, SAH, infection, tumor, headache, sinus thrombosis, arterial dissection, as well as others were entertained. This is a 22-year-old female who presents the emergency department complaining of headache. Patient hit her head approximately 2 weeks ago. Since that time the patient has been developing headaches that seem to come and go with activity. Her mother is requesting an MRI of her head. Based on this patient' s past medical history of epilepsy I do feel that this is actually reasonable. The patient was sent for an MRI of the head however this did not show any acute process. The patient has also been complaining of urinary symptoms for the past week and therefore was placed on Bactrim here in the emergency department. I did discuss the patient's case as well as her results with the patient and her mother. Both patient and mother were in agreement with the treatment plan to follow-up with concussion clinic at [facility]. Medication Reconcilliation Current Medication List: was personally reviewed by me Impression Primary Impression: Headache Additional Impression: UTI (urinary tract infection) Scribe Attestation The scribe's documentation has been prepared under my direction and personally reviewed by me in its entirety. I confirm that the note above accurately reflects all work, treatment, procedures, and medical decision making performed by me. Departure Information Dispostion Home / Self-Care Prescriptions Sulfa/Trimethoprim (Bactrim Ds 800MG/160MG) Tab 1 TAB PO BID for 7 Days, #14 TAB Prov: Yung Carter MD 11/07/17 Referrals No Doctor, Assigned (PCP) Patient Instructions My [facility] Problem Qualifiers Primary Impression: Headache Headache type: unspecified Headache chronicity pattern: unspecified pattern Intractability: not intractable Qualified Codes: R51 - Headache Additional Impression: UTI (urinary tract infection) Urinary tract infection type: acute cystitis Hematuria presence: without hematuria Qualified Codes: N30.00 - Acute cystitis without hematuria
[2017-11-07 13:41] LABS: ALBUMIN 3.6 gm/dl (3.4-5.0); CREATININE 0.63 mg/dl (0.60-1.20); POTASSIUM 3.4 mmol/L (3.5-5.1)
[2017-11-07 13:51] LABS: TOTAL PROTEIN 7.1 gm/dl (6.4-8.2)
[2017-11-07] MEDS ORDERED: POTASSIUM CHLORIDE 20 MEQ/15 ML UDC PO STA (14:11)
[2017-11-07 14:29] LABS: INFLUENZA B ANTIGEN Neg for Influ B (NEG)
[2017-11-07] MEDS ORDERED: SODIUM CHLORIDE 0.9% 500ML 500 ML IV STA (14:48)
--- NOTE | 2017-11-07 14:56 | DIAGNOSTIC IMAGING REPORT ---
BRAIN COMBO FOR SEIZURE CLINICAL HISTORY: 22 years-old Female presenting with Pt c/o weakness, hx of epilepsy, head injury. TECHNIQUE: Multisequence, multiplanar MR imaging of the brain was performed before and after the administration of intravenous contrast. IV contrast: 5 mL of Gadavist. COMPARISON: Noncontrast CT head from 10/29/2017. FINDINGS: Ventricles and sulci normal in size. Brain parenchyma normal in appearance with preserved carter-white differentiation. No mass effect or midline shift. No restricted diffusion to suggest acute ischemia. No hemorrhage. No extra-axial fluid collection. T2 skull base flow voids preserved. No abnormal parenchymal enhancement. Bone marrow signal intensity within the calvarium within normal limits. IMPRESSION: 1. No acute intracranial pathology. No abnormal enhancement. Electronically signed by: Ki Singletary M.D. 11/07/2017 2:54 PM Dictated Date/Time: 11/07/2017 2:47 PM
[2017-11-07] MEDS ORDERED: SULFAMETHOXAZOLE/TRIMETHOPRIM DS 800/160MG TAB PO STA (15:58)
[2017-11-07] MEDS ORDERED: SULF800T23 PO (15:59)
[2017-11-07 16:17] VITALS: BP 120/71; PULSE 80; O2SAT 100
== END 2017-11-07 16:22 | disposition home or self-care (01) ==
LOC: C.EDB 12:47 → C.EDC 16:22
DX: R51 Headache (principal); N30.00 Acute cystitis without hematuria; G40.909 Epilepsy, unspecified, not intractable, without status epilepticus; J45.909 Unspecified asthma, uncomplicated; Q21.1 Atrial septal defect; G40.812 Lennox-Gastaut syndrome, not intractable, without status epilepticus; Z87.01 Personal history of pneumonia (recurrent); Z79.899 Other long term (current) drug therapy